=== PATIENT | female | born 1980 | race Two or more races ===

== ENCOUNTER 2024-07-16 01:02 | Emergency (ER) | payer MEDICAID, SELFPAY ==
[2024-07-16 01:05] VITALS: BMI 30.9
[2024-07-16 01:30] VITALS: BP 124/84; PULSE 88; RESP 20; TEMP 36.8; O2SAT 97
--- NOTE | 2024-07-16 02:55 | EDNOTE_ITS ---
Upper Respiratory Inf. RME/HPI General Chief Complaint: Flu Like Symptoms Stated Complaint: COUGH SORE THROAT CONGESTION Time Seen by Provider: 07/16/24 01:59 Arrival date/time: 07/16/24 01:02 RME / HPI RME / HPI Narrative: 43-year-old female presents to the ED with a complaint of sore throat, difficulty swallowing, shortness of breath and feeling tired for the past 5 days. She was seen at the [place] [facility] twice since 07/11/2024. She was seen on the 07/11 and given Zithromax and Tessalon Perles which she states is not helping. She still has 1 Zithromax tablet left. She was seen again on the 07/14 and given additional Tessalon Perles, albuterol inhaler as well as Mucinex which again is not helping. She denies any fever or chills, nausea or vomiting. Related Data Allergies Allergy/AdvReac Type Severity Reaction Status Date / Time NKA* Allergy Uncoded 07/16/24 01:09 Review of Systems Review of Systems Systems Reviewed: All systems reviewed, normal except as documented Past Medical History Social History SMOKING STATUS: Never smoker ED Exam Narrative Physical exam: Alert and oriented 43-year-old female, no acute distress. Nontoxic-appearing, blood pressure 124/84, pulse 88, respirations 20 and unlabored, temperature 98.2, O2 sat 97% on room air. Lungs are clear, regular rate and rhythm without murmurs. TMs are without erythema, nares are pale and boggy, pharynx is with mild erythema and no exudate. Course Orders Category Date Time Status Bedside COVID-19 Antigen Test NOW Care 07/16/24 02:29 Active Bedside Influenza A&B Antigen Test NOW Care 07/16/24 02:29 Active Strep A Rapid Stat Lab 07/16/24 02:29 Ordered Vital Signs Vital signs: Vital Signs Temperature 98.2 F 07/16/24 01:30 Pulse Rate 88 07/16/24 01:30 Respiratory Rate 20 07/16/24 01:30 Blood Pressure 124/84 07/16/24 01:30 Pulse Oximetry (%) 97 07/16/24 01:30 Oxygen Delivery Method Room Air 07/16/24 01:30 Discharge Plan Prescriptions/Referrals Referrals: No Primary/Family,Physician [Primary Care Provider] - In 1 week Patient/Caregiver Discharge Instructions Print Language: Salvadorean
--- NOTE | 2024-07-16 02:59 | XR_ITS ---
Examination: PA lateral chest 2 views TECHNIQUE: Upright PA lateral chest 2 views Date and time: July 16, 2024 0306 hours INDICATIONS: Coughing beginning 2 weeks ago. FINDINGS: Normal heart size. Lungs are clear. The osseous structures are intact. IMPRESSION: No active disease
[2024-07-16 03:23] LABS: Basophils # (Auto) 0.1 Thou/mm3 (0.0-0.2); Basophils % (Auto) 1 % (0-2.5); Eosinophils # (Auto) 0.1 Thou/mm3 (0.0-0.5); Eosinophils % (Auto) 1 % (0-10); Hematocrit 38.1 % (36.0-46.0); Hemoglobin 13.7 g/dL (12.0-16.0); Immature Granulocytes % (Auto) 1 % (0-0); Immature Granulocytes Auto 0.06 Thou/mm3 (0.00-0.00); Lymphocytes # (Auto) 3.9 Thou/mm3 (1.0-4.8); Lymphocytes % (Auto) 40 % (10-50); Mean Corpuscular Volume 84 fL (80-100); Monocytes # (Auto) 0.6 Thou/mm3 (0.0-0.8); Monocytes % (Auto) 6 % (0-12); Neutrophils # (Auto) 5.1 Thou/mm3 (1.8-7.7); Neutrophils % (Auto) 52 % (37-80); Nucleated Red Blood Cell % 0 /100 WBC (0); Platelet Count 308 Thou/mm3 (140-440); RDW Standard Deviation 40.7 fL (36.4-46.3); Red Blood Count 4.56 Miln/mm3 (4.00-5.20); White Blood Count 9.9 Thou/mm3 (3.6-11.0)
[2024-07-16 03:39] LABS: Strep A Rapid Negative (Negative)
[2024-07-16 03:40] LABS: Alanine Aminotransferase 101 U/L (10-49); Albumin, Serum 4.4 gm/dL (3.5-5.0); Albumin/Globulin Ratio 1.9 (1.2-2.2); Alkaline Phosphatase 69 U/L (46-116); Anion Gap 11 (7-16); BUN/Creatinine Ratio 11 Ratio (12-20); Bilirubin,Total 0.8 mg/dL (0.3-1.2); Blood Urea Nitrogen 9 mg/dL (9-23); C-Reactive Protein < 0.5 mg/dL (0.0-0.9); Calcium 9.1 mg/dL (8.3-10.6); Calcium (Corrected) 9.1 mg/dL (8.5-10.1); Carbon Dioxide 24.1 mMol/L (20.0-31.0); Chloride 106 mMol/L (98-107); Creatinine (Component) 0.8 mg/dL (0.6-1.3); Estimated Creatinine Clearance 91.8 mL/min (>60); Globulin 2.3 gm/dL (2.3-3.5); Glucose 184 mg/dL (74-106); Osmolality,Calculated 284 (275-295); Potassium 3.7 mMol/L (3.4-5.1); Sodium 141 mMol/L (136-145); Total Protein 6.7 gm/dL (5.7-8.2); eGFR > 60 See Note
[2024-07-16 03:44] LABS: Sed Rate (ESR) 14 mm/hr (0-20)
--- NOTE | 2024-07-16 06:16 | PD.EDURI ---
Upper Respiratory Inf. RME/HPI General Chief Complaint: Flu Like Symptoms Stated Complaint: COUGH SORE THROAT CONGESTION Time Seen by Provider: 07/16/24 01:59 Source: patient Arrival date/time: 07/16/24 01:02 43-year-old female with no known medical history presents to the emergency room with a chief complaint of sore throat, difficulty swallowing, fatigue, shortness of breath x 5 days. Patient has been on antibiotics for pneumonia but states her symptoms are progressively gotten worse Mode of arrival: ambulatory Limitations: no limitations RME / HPI RME / HPI Narrative: 43-year-old female presents to the ED with a complaint of sore throat, difficulty swallowing, shortness of breath and feeling tired for the past 5 days. She was seen at the [place] [facility] twice since 07/11/2024. She was seen on the 07/11 and given Zithromax and Tessalon Perles which she states is not helping. She still has 1 Zithromax tablet left. She was seen again on the 07/14 and given additional Tessalon Perles, albuterol inhaler as well as Mucinex which again is not helping. She denies any fever or chills, nausea or vomiting. Related Data Previous Rx's ?Medication ?Instructions ?Recorded acetaminophen 325 mg capsule 650 mg (2 x 325 mg) PO QID PRN 07/16/24 fever or pain 7 days #30 caps albuterol sulfate 90 mcg/actuation 2 puff inhalation Q6H PRN 07/16/24 aerosol inhaler (Ventolin HFA) shortness of breath or wheezing #6.7 grams Allergies Allergy/AdvReac Type Severity Reaction Status Date / Time NKA* Allergy Uncoded 07/16/24 01:09 Review of Systems Review of Systems Systems Reviewed: All systems reviewed, normal except as documented Constitutional Constitutional: Reports system reviewed and no additional complaints, except as documented, Reports fatigue, Reports fever(s), Denies headache(s) and Reports weakness Eyes Eyes: Reports system reviewed and no additional complaints, except as documented, Denies blurry vision and Denies change in vision ENT Ears, Nose, Mouth, and Throat: Reports system reviewed and no additional complaints, except as documented, Denies otalgia, Denies headache(s), Denies nasal congestion, Denies throat swelling and Denies vertigo Cardiovascular Cardiovascular: Reports system reviewed and no additional complaints, except as documented, Denies chest pain, Reports dyspnea and Denies dyspnea on exertion Respiratory Respiratory: Reports system reviewed and no additional complaints, except as documented, Reports chest congestion, Reports cough, Reports dyspnea, Denies dyspnea on exertion and Denies wheezing Gastrointestinal Gastrointestinal: Reports system reviewed and no additional complaints, except as documented, Denies abdominal pain, Denies cramping, Denies nausea and Denies vomiting Genitourinary Genitourinary: Reports system reviewed and no additional complaints, except as documented Musculoskeletal Musculoskeletal: Reports system reviewed and no additional complaints, except as documented and Denies back pain Integumentary/Breasts Skin/Breast: Reports system reviewed and no additional complaints, except as documented and Denies wounds Neurologic Neurologic: Reports system reviewed and no additional complaints, except as documented, Denies confusion, Denies headache(s), Denies lack of coordination, Denies vertigo and Reports weakness Psychiatric Psychiatric: Reports system reviewed and no additional complaints, except as documented, Denies anxiety, Denies confusion, Denies depression, Denies paranoia, Denies suicidal ideation and Denies tactile hallucinations Endocrine Endocrine: Reports system reviewed and no additional complaints, except as documented and Reports fatigue Hematologic/Lymphatic Hematologic/Lymphatic: Reports system reviewed and no additional complaints, except as documented and Denies lymphadenopathy Allergic/Immunologic Allergic/Immunologic: Reports system reviewed and no additional complaints, except as documented, Denies throat swelling, Denies urticaria and Denies wheezing Past Medical History Social History SMOKING STATUS: Never smoker ED Exam General Limitations: Present no limitations General appearance: Present alert and in no apparent distress Head Head exam: Present atraumatic Eye Eye exam: Present normal appearance, PERRL and EOMI ENT ENT exam: Present normal exam, normal oropharynx and mucous membranes moist Neck Neck exam: Present normal inspection, full ROM and trachea midline Chest Chest inspection: Present normal inspection and symmetric chest wall rise Respiratory Respiratory exam: Present normal lung sounds bilaterally Cardiovascular Cardiovascular exam: Present regular rate, normal rhythm and normal heart sounds Abdominal Exam Abdominal exam: Present soft and normal bowel sounds Extremities Exam Extremities exam: Present normal inspection and full ROM Back Exam Back exam: Present normal inspection and full ROM Neurological Exam Neurological exam: Present alert, oriented X3 and CN II-XII intact Psychiatric Psychiatric exam: Present normal affect and normal mood Skin Skin exam: Present warm, dry, intact and normal color Course Quality Measures none Orders Category Date Time Status Bedside COVID-19 Antigen Test NOW Care 07/16/24 02:29 Active Bedside Influenza A&B Antigen Test NOW Care 07/16/24 02:29 Completed XR chest 2V Stat Exams 07/16/24 02:59 Taken CBC Stat Lab 07/16/24 03:05 Completed CMP [Comprehensive Metabolic Panel] Stat Lab 07/16/24 03:05 Completed CRP [C-Reactive Protein] Stat Lab 07/16/24 03:05 Completed ESR [Sed Rate (ESR)] Stat Lab 07/16/24 03:05 Completed Strep A Rapid Stat Lab 07/16/24 02:45 Completed Vital Signs Vital signs: Vital Signs Temperature 98.2 F 07/16/24 01:30 Pulse Rate 88 07/16/24 01:30 Respiratory Rate 20 07/16/24 01:30 Blood Pressure 124/84 07/16/24 01:30 Pulse Oximetry (%) 97 07/16/24 01:30 Oxygen Delivery Method Room Air 07/16/24 01:30 O2 saturation 97% within normal limits Upper Respiratory Infection MDM Narrative MDM Narrative:: 43-year-old female with no known medical history presents to the emergency room with a chief complaint of sore throat, difficulty swallowing, fatigue, shortness of breath x 5 days. Patient has been on antibiotics for pneumonia but states her symptoms are progressively gotten worse Patient is hemodynamically stable. She is afebrile not tachypneic not tachycardic and her O2 saturation is 97% on room air Patient's lung sounds are clear bilaterally Patient tested positive for influenza A and influenza B Chest x-ray was negative Patient was discharged and educated to follow-up with primary care provider in the next 24 to 48 hours and return to the emergency room for any evidence of worsening signs or symptoms Patient data External records reviewed:: [facility] previous records Clinical information provided by:: patient Social determinants that could affect healthcare access:: none Patient has the following chronic illnesses:: No chronic illness How is presenting disease/condition affected by chronic disease/condition?: no chronic disease Evaluation data The following diagnostics were reviewed and interpreted by me:: lab results and radiology exam(s) Lab and/or radiology exams considered but not ordered:: Labs and radiology exams considered and ordered Interpretation Summary: Chest x-ray-no pneumonic infiltrates Medications / Prescriptions Medications or Prescriptions considered but not ordered:: Medication given Medication administrations:: No medication given Consultations Consultation(s) initiated? (list below): No Diagnosis Upper Respiratory Differential Diagnosis: upper respiratory infection, sinusitis, viral infection, bronchitis, influenza, pharyngitis and other (Community-acquired pneumonia) Most likely diagnosis given after review of the tests above:: Influenza A and B Admission Indicated Admission indicated?: not indicated Admission Request Was there a request for admission?: No Disposition Plan Disposition Plan: Discharge Discharge Attestation Discharge Attestation: The patient and all family members were given an opportunity to ask questions and understood the discharge instructions. Discharge instructions specifically effects, indications for sooner follow up or return to the emergency department, and the expected course of current diagnosis. Patient condition: Stable Discharge Plan Plan Patient Disposition: HOME (Self Care) Discharge Disposition comment: Stable Prescriptions/Referrals Prescriptions/Med Rec: New acetaminophen 325 mg capsule 650 mg PO QID PRN (Reason: fever or pain) 7 Days Qty: 30 0RF albuterol sulfate [Ventolin HFA] 90 mcg/actuation HFA aerosol inhaler 2 puff inhalation Q6H PRN (Reason: shortness of breath or wheezing) Qty: 6.7 0RF Referrals: No Primary/Family,Physician [Primary Care Provider] - In 1 week Problem List Clinical Impression: Influenza A, Influenza B Patient/Caregiver Discharge Instructions Discharge Activity: activity as tolerated Education Materials: ED Influenza (Adult) Additional Instructions: Por favor, consulte con flowers m?dico de cabecera en las pr?ximas 24 a 48 horas. Daniel positivo en las pruebas de influenza A y B. El tratamiento es el control de los s?ntomas. Contin?e tomando Tylenol e ibuprofeno para controlar la fiebre. Aumente flowers ingesta de l?quidos por v?a oral. Ante cualquier signo de empeoramiento de los signos o s?ntomas, acuda de inmediato a urgencias. Print Language: Pashto Stand Alone Forms: Nidhi Award Info., Work/School Release, Patient Portal Info Letter PA/DATABASE ANALYST Supervising Physician PA/DATABASE ANALYST Supervising Physician: Dr. Jessica
== END 2024-07-16 06:40 | disposition home or self-care (01) ==
PROVIDERS: Physician Assistant; Emergency Provider Emergency Medicine
DX: J10.1 Influenza due to other identified influenza virus with other respiratory manifestations (principal)
CPT/HCPCS: 36415; 71046; 80053; 85025; 85652; 86140; 87400; 87651; 87811; 99283